=== PATIENT | male | born 1975 | race Caucasian/White ===

== ENCOUNTER 2019-05-25 17:50 | Emergency (ER) | payer OTHER, SELFPAY ==
[2019-05-25 17:56] VITALS: BP 145/78; PULSE 105; RESP 16; TEMP 36.6
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
[2019-05-25] MEDS: Ibuprofen 800 MG TAB PO (18:15)
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
--- NOTE | 2019-05-25 18:45 | DI.VRAD_ITS ---
EXAM: XR Right Ankle EXAM DATE/TIME: 05/25/2019 6:24 PM CLINICAL HISTORY: 44 years old, male; Pain; Ankle; Right TECHNIQUE: Imaging protocol: XR Right ankle. Views: 3 or more views. COMPARISON: No relevant prior studies available. FINDINGS: Bones/joints: No recent fracture or dislocation is identified. Slight irregularity of the distal fibula laterally most likely secondary to prior trauma. Possible ankle joint effusion. Soft tissues: Normal. IMPRESSION: 1. No recent fracture or dislocation is identified. 2. Slight irregularity of the distal fibula laterally most likely secondary to prior old trauma. Possible ankle joint effusion. Dictated and Authenticated by: Alexandre Evans MD. Ordering:MADDIE Gomez MD
== END 2019-05-25 19:14 | disposition home or self-care (01) ==
PROVIDERS: Emergency Provider Nurse Practitioner Family
DX: S93.401A Sprain of unspecified ligament of right ankle, initial encounter (principal); S80.811A Abrasion, right lower leg, initial encounter; V18.0XXA Pedal cycle driver injured in noncollision transport accident in nontraffic accident, initial encounter; Y93.55 Activity, bike riding
CPT/HCPCS: 29515; 99284; 73590; 73610; 99283; L1902; L4361